=== PATIENT | male | born 1940 | race Caucasian/White ===

== ENCOUNTER 2019-09-01 03:47 | Inpatient (IN) | payer MEDICARE, OTHER ==
[~2019-09-01] VITALS: Ht 185.4 cm; Wt 81.6 kg
--- NOTE | ~2019-09-01 | HEMODYNAMI ---
PATIENT:KAIA MAE MEDICAL RECORD: [id number] : 40 [id number] ADMISSION DATE: 09/01/19 Generatedon:09/02/201912:38 Patient name: KAIA MAE Patient #: [id number] : 1940 Date of study: 09/02/2019 Page: Of Hemodynamic Procedure Report Patient Data Patient Demographics Procedure consent was obtained First Name: KAIA Gender: Male Last Name: TU : 1940 Patient #: [id number] Age: 78 year(s) Race: SSN: [id number] Additional ID: [id number] Contact details Address: [address] [place] [address] State: [place] City: [place] Zip code: [address] Past Medical History Allergies: No known allergies Admission Admission Data Admission Date: 09/01/2019 Admission Time: 5:23 Arrival Date: 09/02/2019 Arrival Time: 0:00 Room #: D.2135 Insurance Payor: Medicare [facility] #: [id number] Height (in.): 73 BSA: 2.06 (m2) Height (cm.): 185.42 BMI: 23.8 (kg/m2) Weight (lbs.): 180.36 Weight (kg.): 81.81 Lab Results Lab Result Date: 09/01/2019 Lab Result Time: 0:00 Biochemistry Name Units Result Min Max BUN mg/dl 15.3 --(---*)-- 7 18 Creatinine mg/dl 1.36 --(----)*- 0.6 1.3 eGFR ml/min 53 *-(----)-- 90 120 NONAFRICAN CBC Name Units Result Min Max Hemoglobin g/dl 13.6 --(*---)-- 13.5 17.5 Procedure Procedure Types Cath Procedure Diagnostic Procedure Sedation Charges Moderate Sedation up to 15 minutes PCI Procedure Coronary Stent Coronary Stent Initial x2 Procedure Description Procedure Date Procedure Date: 09/02/2019 Procedure Start Time: 12:17 Procedure End Time: 12:36 Procedure Staff Name Function Oli Nam MD Performing Physician Fior Douglas RT Monitor Kae Gustafson RT Monitor Day Spencer RN Nurse Cheryl Laughlin RT Scrub Indication NSTEMI Procedure Data Cath Procedure Fluoroscopy Diagnostic fluoroscopy Total fluoroscopy Time: 5.3 time: 5.3 min min Diagnostic fluoroscopy Total fluoroscopy dose: 414 dose: 414 mGy mGy Contrast Material Contrast Material Type Amount (ml) Isovue 300 105 Entry Location Entry Primary Successful Side Size Upsize Upsize Entry Closure Succes sful Closure Location (Fr) 1 (Fr) 2 (Fr) Remarks Device Remarks Femoral Left 6 Fr Exoseal artery Short Estimated blood loss: 10 ml Procedure Complications No complications Procedure Medications Medication Administration Route Dosage 0.9% NaCl I.V. 100 ml/hr Oxygen etCO2 Nasal cannula 2 l/min Lidocaine 2% added to field 20 Heparin Flush Bag added to field 2 bags (1000units/500ml NS) Plavix P.O. 75 mg Heparin Bolus I.V. 4000 units Versed I.V. 2 mg Fentanyl I.V. 100 mcg Hemodynamics Rest BSA: 2.06 (m2) HGB: 13.6 (g/dl) O2 Consumption: Estimated: 247.61 (ml/min) O2 Co nsumption indexed: Estimated:120.2 (ml/min/m) Heart Rate: 85 (bpm) Snapshots Pre Cath Intra NCS Post Cath Vital Signs Time Heart Resp SPO2 etCO2 NIBP (mmHg) Rhythm Pain Sedation Rate (ipm) (%) (mmHg) Status Level (bpm) 12:08:01 84 22 98 30 169/89(139) NSR 0 (11) 10(A) , No pain 12:12:21 84 17 99 31.5 154/76(121) NSR 0 (11) 10(A) , No pain 12:16:41 84 12 97 30 154/78(123) NSR 0 (11) 10(A) , No pain 12:20:57 88 15 98 39.1 153/87(127) NSR 0 (11) 9(A) , No pain 12:25:19 98 16 98 28.5 166/92(139) NSR 0 (11) 9(A) , No pain 12:29:39 97 12 98 38.3 160/92(124) NSR 0 (11) 10(A) , No pain 12:34:00 95 13 98 38.3 167/93(135) NSR 0 (11) 10(A) , No pain Medications Time Medication Route Dose Verified Delivered Reason Notes Effectiveness by by 12:07:12 0.9% NaCl I.V. 100 Oli Day used for ml/hr Cyril Spencer purifying plant operator 12:07:19 Oxygen etCO2 2 Oli Day used for Nasal l/min Cyril Spencer procedure cannula RN 12:07:24 Lidocaine 2% added 20ml Oli Oli for local to vial Cyril Nam MD anesthetic field 12:07:28 Heparin Flush added 2 Oli Oli used for Bag to bags Cyril Nam MD procedure (1000units/500ml field NS) 12:11:42 Plavix P.O. 75 mg Oli Day for Cyril Spencer antiplatelet RN therapy 12:17:19 Versed I.V. 2 mg Oli Day for sedation Cyril Spencer RN 12:17:28 Fentanyl I.V. 100 Oli Day for sedation mcg Cyril Spencer RN 12:18:33 Heparin Bolus I.V. 4000 Oli Day for verif ied units Cyril Spencer anticoagulation with Dr. CHOCO Nam Procedure Log Time Note 11:49:46 Informed consent obtained and on chart 11:50:07 Patient Weight : 180.36 lbs 11:50:07 Patient Height : 73 inches 11:50:35 Indication : NSTEMI 11:50:48 Procedure Status Urgent Heart Cath (IP). 11:50:51 Day Spencer RN sent for patient. Start room use. 11:50:53 Time tracking: Regular hours (M-F 7:00 - 5:00) 11:51:02 Plan of Care:Hemodynamics will remain stable., Cardiac rhythm will remain stable., Comfort level will be maintained., Respiratory function will remain adequate., Patient/ family verbilizes understanding of procedure., Procedure tolerated without complication., Recovers from procedure without complications.. 11:51:41 ACC Patient presents with Non-STEMI CCS Anginal Class 3--Marked limitation of physical activity, angina occurs with ordinary activity.. 11:52:12 ACCPatient has been prescribed/administered the following anti-anginal medication within the last 2 weeks: None 11:52:56 H&P Date Dictated: 09/02/2019 New H&P dictated by physician.. 11:55:33 Patient allergic to No known allergies 11:55:37 Is the patient allergic to Iodine/contrast media? No. 11:55:40 Was the patient premedicated? Yes 11:56:00 Is patient on blood thinner?Yes 11:56:05 ACC The patient was administered the following blood thiners within the last 24 hours: ACCPlavix 11:56:10 Patient diabetic? Yes. 11:56:22 If diabetic: On Metformin? No 11:57:33 ----Pre-sedation anethsthesia assessment.---- 11:57:38 Previous problem with sedation/anesthesia? No ? 11:57:40 Snore? Yes 11:57:43 Sleep apnea? No 11:57:45 Deviated septum? No 11:57:47 Opens mouth fully? Yes 11:57:49 Sticks out tongue? Yes 11:57:53 Airway obstruction? No ? 12:01:36 Dentures? Yes out 12:01:49 Patient received from [employer] to CCL 1 Alert and oriented. Tansferred to table in Supine position. 12:06:47 Warm blankets applied, and madan hugger turned on for patient comfort. 12:06:48 Correct patient and procedure confirmed by team. 12:06:49 ECG and BP/O2 sat monitors applied to patient. 12:06:50 Vital chart was started 12:06:51 Baseline sample Acquired. 12:06:57 Rhythm: sinus rhythm 12:06:59 Full Disclosure recording started 12:06:59 - 12:07:06 Pre-procedure instructions explained to patient. 12:07:07 Pre-op teaching completed and patient verbalized understanding. 12:07:12 0.9% NaCl 100 ml/hr I.V. was administered by Day Spencer RN; used for procedure; Verbal order read back and verified. 12:07:12 Family in patients room. 12:07:15 Patient NPO since Midnight. 12:07:19 Oxygen 2 l/min etCO2 Nasal cannula was administered by Day Spencer RN ; used for procedure; Verbal order read back and verified. 12:07:24 Lidocaine 2% 20ml vial added to field was administered by Oli Nam MD; for local anesthetic; Verbal order read back and verified. 12:07:28 Heparin Flush Bag (1000units/500ml NS) 2 bags added to field was administered by Oli Nam MD; used for procedure; Verbal order read back and verified. 12:08:27 Patient pain scale 0/10 ?. 12:08:43 Pre procedure: right dorsailis pedis pulse 1+ Palpable, but thready & weak; easily obliterated 12:08:48 Pre procedure: left dorsailis pedis pulse 1+ Palpable, but thready & weak; easily obliterated 12:08:59 IV patent on arrival in left wrist with 0.9% NaCl at [facility]. 12:09:09 Risk of Mortality: 0.1 12:09:15 Risk of blood transfusion: 0.4 12:09:22 Risk of TINY: 1.2 12:09:27 Left groin area was prepped with chlora-prep and draped in sterile fashion 12:09:28 Alarms reviewed by R. N. 12:09:29 Sharps counted by scrub and verified by R.N. 12:10:17 Use device set CATH PACK 12:10:20 ACIST Syringe (02209) opened to sterile field. 12:10:20 ACIST Hand Control (56991) opened to sterile field. 12:10:21 ACIST Manifold (26363) opened to sterile field. 12:10:25 Medline Cath Pack ([id number]) opened to sterile field. 12:10:26 Bag Decanter () opened to sterile field. 12:10:27 EMERALD Guide Wire (502-033) opened to sterile field. 12:11:07 CHOICE PT Extra Support 182cm wire ([id number]) opened to sterile field. 12:11:08 INFLATOR Merit BasixCompak (JJ2485) opened to sterile field. 12:11:09 SHEATH 6FR Eden (SCM802) opened to sterile field. 12:11:42 Plavix 75 mg P.O. was administered by Day Spencer RN; for antiplatele t therapy; Verbal order read back and verified. 12:14:11 Arrival Date: 09/02/2019 12:00:00 AM 12:14:36 Insurance Payor : Medicare 12:15:47 --------ALL STOP TIME OUT------ 12:15:48 Final Timeout: patient, procedure, and site verified with staff and physician. All members of the team are in agreement. 12:15:50 Left groin site verified by team. 12:15:57 Fire Safety Assessment: A--An alcohol-based skin anteseptic being used preoperatively., C--Open oxygen or nitrous oxide is being used., D--An ESU, laser, or fiber-optic light is being used. 12:16:01 Physical assessment completed. ASA score P 2 - A patient with mild systemic disease as per Oli Nam MD. 12:16:08 2) 60-89 Mildly reduced kidney function, and other findings (as for stage 1) point to kidney disease. 12:16:14 Maximum allowable contrast dose (3.7 X eGFR X 0.75)214 ml. 12:16:21 Sedation plan: IV Moderate Sedation Medication:Versed, Fentanyl 12:16:31 Procedure started. 12:17:05 Zero performed for pressure channel P1 12:17:19 Versed 2 mg I.V. was administered by Day Spencer RN; for sedation; Verbal order read back and verified. 12:17:28 Fentanyl 100 mcg I.V. was administered by Day Spencer RN; for sedation; Verbal order read back and verified. 12:17:31 Local anesthetic to left femerol artery with Lidocaine 2% by Oli Nam MD.INITIAL ACCESS ONLY 12:17:51 A 6 Fr Short sheath was inserted into the Left Femoral artery 12:18:16 GUIDE 6FR XBLAD 3.5 catheter ([id number]) opened to sterile field. 12:18:33 Heparin Bolus 4000 units I.V. was administered by Day Spencer RN; for anticoagulation; verified with Dr. Nam Verbal order read back and verified. 12:18:33 6 Fr XBLAD3.5 guide catheter was inserted over the wire 12:18:57 LCA angiography performed. 12:19:27 Pre PCI Site: [place] Diag1 has 99% stenosis. 12:19:41 Pre PCI Site: [place] pCirc has 95% stenosis. 12:20:22 CHOICE ES182 wire advanced. 12:20:29 Wire advanced across CX lesion. 12:21:38 Inflate balloon Inflation number: 1 A EUPHORA 2.0 x 15 Balloon ([id number]) was prepped and advanced across the Mid CX , then inflated to 17 ROYER for 0:10 (min:sec) . 12:21:43 Balloon removed over the wire. 12:22:55 Place stent Inflation Number: 2 A LENIN RX 2.5 x 18 stent ([id number]) was prepped and advanced across the Mid CX . The stent was deployed at 15 ROYER for 0:10 (min:sec) . 12:23:05 Stent catheter was removed intact over wire. 12:23:26 Wire redirected to DIAG. 12:25:47 Inflation number: 1 The EUPHORA 2.0 x 15 Balloon ([id number]) was reinflated across the 1st Diag , to 9 ROYER for 0:10 (min:sec) . 12:25:56 Balloon removed over the wire. 12:27:04 The LENIN RX 2.0 x 12 stent ([id number]) was advanced then removed because of failure to cross lesion 12:28:54 Inflation number: 2 The EUPHORA 2.0 x 15 Balloon ([id number]) was reinflated across the 1st Diag , to 15 ROYER for 0:10 (min:sec) . 12:28:55 Balloon removed over the wire. 12:29:45 Place stent Inflation Number: 3 A LENIN RX 2.0 x 12 stent ([id number]) was prepped and advanced across the 1st Diag . The stent was deployed at 13 ROYER for 0:10 (min:sec) . 12:29:53 ACT drawn and resulted at 291 seconds. (normal therapeutic range 180-24 0 seconds). 12:30:30 Stent catheter was removed intact over wire. 12:30:31 Wire removed. 12:30:32 Guide catheter removed. 12:30:47 EXOSEAL 6Fr (EX600) opened to sterile field. 12:31:09 Sheath removed intact; hemostasis achieved with Exoseal to the Left Femoral artery. 12:31:12 Procedure ended.(Physican Out) 12:32:04 Fluoroscopy time 05.30 minutes. 12:32:12 Fluoroscopy dose: 414 mGy 12:32:12 Flurop Dose total: 414 12:32:37 Dose Area Product 94379 mGy/cm. 12:32:45 Contrast amount:Isovue 300 105ml. 12:32:49 Maximum allowable dose exceeded? No. 12:32:54 Sharps counted by scrub and verified by R.N. 12:32:59 Insertion/operative site no bleeding no hematoma. 12:33:05 Post-op/insertion site Left Femoral artery dressed using a 4 x 4 and Tegaderm. 12:33:11 Post left femerol artery:stable 12:33:13 Post Procedure Pulses reassessed and unchanged 12:33:17 Post-procedure physical assessment completed. ASA score P 2 - A patient with mild systemic disease as per Oli Nam MD. 12:33:21 Post procedure rhythm: unchanged. 12:33:25 Estimated blood loss: 10 ml 12:33:27 Post procedure instruction explained to patient.Patient verbalizes understanding. 12:33:28 Patient needs reinforcement of post procedure teaching. 12:34:41 Procedure type changed to Cath procedure, Diagnostic procedure, Sedatio n Charges, Moderate Sedation up to 15 minutes, PCI procedure, Coronary Stent, Coronary Stent Initial x2 12:34:44 Procedure and supply charges have been captured, reviewed, submitted an d are correct. 12:36:05 Procedure Complication : No complications 12:36:09 Vital chart was stopped 12:36:16 [facility] Findings: MVD- PCI performed (see procedure note) 12:36:21 Operative report dictated upon procedure completion. 12:36:22 See physician's report for complete and final results. 12:36:25 Report given to [facility]. 12:36:29 Patient transfered to [facility] with Bed. 12:36:32 Procedure ended. 12:36:32 Full Disclosure recording stopped 12:36:40 ACC-PCI Only Patient was given prescriptions, or instructed by Oli Nam MD to start/continue the following medications upon discharge: Plavix 12:36:42 End room use (Document Last) Intervention Summary Intervention Notes Time ActionType Lesion and Equipment Used Action# Pressure Duration Attributes 12:21:38 Inflate Mid CX EUPHORA 2.0 x 1 17 00:10 balloon 15 Balloon ([id number]) 12:22:55 Place stent Mid CX LENIN RX 2.5 x 2 15 00:10 18 stent ([id number]) 12:25:47 Reinflate 1st Diag EUPHORA 2.0 x 1 9 00:10 balloon 15 Balloon ([id number]) 12:27:04 Discard LENIN RX 2.0 x Stent 12 stent ([id number]) 12:28:54 Reinflate 1st Diag EUPHORA 2.0 x 2 15 00:10 balloon 15 Balloon ([id number]) 12:29:45 Place stent 1st Diag LENIN RX 2.0 x 3 13 00:10 12 stent ([id number]) Device Usage Item Name Manufacture Quantity Catalog Number Hospital Part Current M inimal Lot# / Charge Number Stock Stock Serial# Code ACIST Syringe Acist 1 67980 001079 811357 729925 2 0 (44741) Medical Systems Inc ACIST Hand Acist 1 95453 182796 216705 849755 5 Control Medical (33923) Systems Inc ACIST Manifold Acist 1 12944 902105 925981 195758 5 (44457) Medical Systems Inc Medline Cath Medline 1 [id number] 005746 07614 471164 5 Pack ([id number]) Bag Decanter Microtek 1 2001S 293368 30222 553325 5 () Medical Inc. EMERALD Guide Cardinal 1 502-455 287512 461036 217405 5 Wire (502-455) Health CHOICE PT [place] 1 [id number] 411707 597967 137333 5 Extra Support Scientific 182cm wire ([id number]) INFLATOR Merit Merit 1 YM5120 106181 019697 999104 1 5 Corengi (NZ7726) SHEATH 6FR Terumo 1 DHT637 757655 573487 652257 4 0 Eden (HFT035) GUIDE 6FR Cardinal 1 [id number] 249487 943840 739505 1 0 XBLAD 3.5 Health catheter ([id number]) EUPHORA 2.0 x Medtronic 1 [id number] 834578 129674 280895 5 [id number] 15 Balloon ([id number]) LENIN RX 2.5 x Medtronic 1 [id number] 274933 3980931 036477 5 [id number] 18 stent ([id number]) LENIN RX 2.0 x Medtronic 1 [id number] 497581 4114895 674519 5 [id number] 12 stent ([id number]) EXOSEAL 6Fr Cardinal 1 EX600 531137 742654 624163 1 0 (EX600) Health Signature Audit [place] Stage Time Signature Unsigned Intra-Procedure 09/02/2019 Kae 12:37:07 PM Sj RT(R) (CV) Intra-Procedure 09/02/2019 Day Spencer 12:37:40 PM RN Intra-Procedure 09/02/2019 Oli Nam 12:38:06 PM [id number] [place] [address]
--- NOTE | ~2019-09-01 | HEMODYNAMI ---
PATIENT:KAIA MAE MEDICAL RECORD: [id number] : 40 LOCATION:[facility] D.2135 ADMISSION DATE: 09/01/19 Generatedon:09/02/20199:38 Patient name: KAIA MAE Patient #: [id number] : 1940 Date of study: 09/01/2019 Page: Of Hemodynamic Procedure Report Patient Data Patient Demographics Procedure consent was obtained First Name: KAIA Gender: Male Last Name: TU : 1940 Patient #: [id number] Age: 78 year(s) Race: Unknown SSN: [id number] Additional ID: [id number] Contact details Address: [address] [place] [address] State: [place] City: [place] Zip code: [address] Past Medical History Allergies: No known allergies Admission Admission Data Admission Date: 09/01/2019 Admission Time: 5:23 Room #: D.2135 Height (in.): 73 BSA: 2.06 (m2) Height (cm.): 185.42 BMI: 23.8 (kg/m2) Weight (lbs.): 180.36 Weight (kg.): 81.81 Lab Results Lab Result Date: 09/01/2019 Lab Result Time: 0:00 Biochemistry Name Units Result Min Max BUN mg/dl 15.3 --(---*)-- 7 18 Creatinine mg/dl 1.36 --(----)*- 0.6 1.3 eGFR ml/min 53 *-(----)-- 90 120 NONAFRICAN CBC Name Units Result Min Max Hemoglobin g/dl 13.6 --(*---)-- 13.5 17.5 Procedure Procedure Types Cath Procedure Diagnostic Procedure LHC LHC w/Coronaries w/Grafts FFR/IVUS Intra-Coronary IVUS Initial Intra-Coronary IVUS Additional Sedation Charges Moderate Sedation up to 15 minutes PCI Procedure Coronary Stent Coronary Stent Initial Coronary Stent Additional Procedure Description Procedure Date Procedure Date: 09/01/2019 Procedure Start Time: 10:33 Procedure End Time: 10:56 Procedure Staff Name Function Maria Shahen RT Scrub Oli Nam MD Performing Physician Rosario Crenshaw RT Monitor Day Spencer RN Nurse Indication Chest pain Procedure Data Cath Procedure Fluoroscopy Diagnostic fluoroscopy Total fluoroscopy Time: 4.5 time: 4.5 min min Diagnostic fluoroscopy Total fluoroscopy dose: 846 dose: 846 mGy mGy Contrast Material Contrast Material Type Amount (ml) Isovue 300 124 Entry Location Entry Primary Successful Side Size Upsize Upsize Entry Closure Succes sful Closure Location (Fr) 1 (Fr) 2 (Fr) Remarks Device Remarks Femoral Right 5 Fr 6 Fr Exoseal artery Short Estimated blood loss: 10 ml Diagnostic catheters Device Type Used For End Catheter Placement MULTIPACK Pigtail 5 Fr Procedure catheter MULTIPACK JL 4.0 5Fr Procedure catheter MULTIPACK 3DRC 5Fr Procedure catheter Procedure Complications No complications Procedure Medications Medication Administration Route Dosage 0.9% NaCl I.V. 100 ml/hr Oxygen etCO2 Nasal cannula 2 l/min Lidocaine 2% added to field 20 Heparin Flush Bag added to field 2 bags (1000units/500ml NS) Versed I.V. 2 mg Fentanyl I.V. 50 mcg Heparin Bolus I.V. 4000 units Fentanyl I.V. 25 mcg Hemodynamics Rest HGB: 13.6 (g/dl) Heart Rate: 87 (bpm) Snapshots Pre Cath Intra NCS Post Cath Vital Signs Time Heart Resp SPO2 etCO2 NIBP (mmHg) Rhythm Pain Status Sedation Rate (ipm) (%) (mmHg) Level (bpm) 10:23:17 95 22 100 29.4 169/91(132) NSR 0 (11) , No 10(A) pain 10:27:37 87 14 99 33.9 156/88(122) NSR 0 (11) , No 10(A) pain 10:31:53 87 14 100 35.4 158/85(125) NSR 0 (11) , No 10(A) pain 10:36:07 91 17 100 33.2 166/96(124) NSR 0 (11) , No 9(A) pain 10:40:25 93 16 100 33.2 156/90(122) NSR 2 (11) , 10(A) Uncomfortable 10:44:39 91 16 100 32.4 161/91(124) NSR 0 (11) , No 9(A) pain 10:48:55 92 13 100 15.8 159/91(130) NSR 0 (11) , No 9(A) pain 10:53:12 92 13 100 17.3 164/86(135) NSR 0 (11) , No 9(A) pain Medications Time Medication Route Dose Verified Delivered Reason Notes Effectiveness by by 10:22:17 0.9% NaCl I.V. 100 Oli Day used for ml/hr Cyril Spencer independent sales representative 10:22:24 Oxygen etCO2 2 Oli Day used for Nasal l/min Cyril Spencer procedure cannula RN 10:22:29 Lidocaine 2% added 20ml Oli Oli for local to vial Cyril Nam MD anesthetic field 10:22:33 Heparin Flush added 2 Oli Oli used for Bag to bags Cyril Nam MD procedure (1000units/500ml field NS) 10:34:20 Versed I.V. 2 mg Oli Day for sedation Cyril Spencer RN 10:34:28 Fentanyl I.V. 50 Oli Day for sedation mcg Cyril Spencer RN 10:39:31 Heparin Bolus I.V. 4000 Oli Day for verif ied units Cyril Spencer anticoagulation with Dr. CHOCO Nam 10:42:08 Fentanyl I.V. 25 Oli Day for sedation mcg Cyril Spencer insulation mechanic Log Time Note 9:58:35 Patient Height : 73 inches 9:58:41 Patient Weight : 180.36 lbs 10:00:26 Indication : Chest pain 10:00:36 Procedure Status Urgent Heart Cath (IP). 10:00:41 Day Spencer RN sent for patient. Start room use. 10:00:43 Time tracking: Regular hours (M-F 7:00 - 5:00) 10:00:48 Plan of Care:Hemodynamics will remain stable., Cardiac rhythm will remain stable., Comfort level will be maintained., Respiratory function will remain adequate., Patient/ family verbilizes understanding of procedure., Procedure tolerated without complication., Recovers from procedure without complications.. 10:01:04 Patient received from Med II to [facility] 2 Alert and oriented. Tansferred to table in Supine position. 10:01:09 Signed procedure consent form obtained from patient. 10:01:29 H&P Date Dictated: 09/01/2019 Within 30 days and on chart., H&P Addendum completed by physician on day of procedure. (MUST COMPLETE FOR ALL OUTPATIENTS). 10:01:30 Pre-procedure instructions explained to patient. 10:01:33 Family in patients room. 10:01:36 Patient NPO since Midnight. 10:01:50 Patient allergic to No known allergies 10:01:54 Is the patient allergic to Iodine/contrast media? No. 10:02:16 Use device set Femoral Dx 10:02:18 Bag Decanter (2002S) opened to sterile field. 10:02:18 ACIST Syringe (87568) opened to sterile field. 10:02:19 Medline Cath Pack ([id number]) opened to sterile field. 10:02:20 ACIST Hand Control (23268) opened to sterile field. 10:02:21 ACIST Manifold (52149) opened to sterile field. 10:02:22 DIAGNOSTIC Multipack 5Fr catheter set (HG2131) opened to sterile field. 10:02:23 Tegaderm 4 x 4 (1626W) opened to sterile field. 10:02:25 SHEATH 5FR [place] ([id number]) opened to sterile field. 10:02:27 EMERALD Guide Wire (768-816) opened to sterile field. 10:17:51 Correct patient and procedure confirmed by team. 10:17:51 Warm blankets applied, and madan hugger turned on for patient comfort. 10:17:52 ECG and BP/O2 sat monitors applied to patient. 10:17:58 Is patient on blood thinner?Yes 10:18:01 ACC The patient was administered the following blood thiners within the last 24 hours: ACCAspirin, ACCPlavix 10:18:10 Patient diabetic? Yes. 10:18:23 If diabetic: On Metformin? No 10:18:28 Snore? Yes 10:18:29 Sleep apnea? No 10:18:34 Dentures? Yes out 10:18:47 Patient pain scale 1/10 ?. 10:18:59 IV patent on arrival in left wrist with 0.9% NaCl at O. 10:20:23 Lab Result : eGFR NONAFRICAN 53 ml/min 10:: Lab Result : Hemoglobin 13.6 g/dl 10:: Lab Result : BUN 15.3 mg/dl 10:: Lab Result : Creatinine 1.36 mg/dl 10::32 Lab results completed and on chart. 10:20:44 Risk of blood transfusion: 2.2 10:22:09 Vital chart was started 10:22:17 0.9% NaCl 100 ml/hr I.V. was administered by Day Spencer RN; used for procedure; Verbal order read back and verified. 10:22:24 Oxygen 2 l/min etCO2 Nasal cannula was administered by Day Spencer RN; used for procedure; Verbal order read back and verified. 10:22:29 Lidocaine 2% 20ml vial added to field was administered by Oli Nam MD; for local anesthetic; Verbal order read back and verified. 10:22:33 Heparin Flush Bag (1000units/500ml NS) 2 bags added to field was administered by Oli Nam MD; used for procedure; Verbal order read back and verified. 10:29:33 Risk of Mortality: 4.8 10:29:37 Risk of blood transfusion: 4.0 10:29:40 Risk of TINY: 5.1 10:29:43 Right groin area was prepped with chlora-prep and draped in sterile fashion 10:29:44 Alarms reviewed by R. N. 10:29:45 Sharps counted by scrub and verified by R.N. 10:29:47 Physician arrived 10:30:32 Baseline sample Acquired. 10:30:36 Rhythm: sinus rhythm 10:30:37 Full Disclosure recording started 10:30:59 3a) 45-59 Moderately reduced kidney function. 10:31:26 Maximum allowable contrast dose (3.7 X eGFR X 0.75)147 ml. 10:32:16 Final Timeout: patient, procedure, and site verified with staff and physician. All members of the team are in agreement. 10:32:16 --------ALL STOP TIME OUT------ 10:32:19 Right groin site verified by team. 10:32:23 Fire Safety Assessment: A--An alcohol-based skin anteseptic being used preoperatively., C--Open oxygen or nitrous oxide is being used., D--An ESU, laser, or fiber-optic light is being used. 10:32:27 Physical assessment completed. ASA score P 3 - A patient with severe systemic disease as per Oli Nam MD. 10:32:31 Sedation plan: IV Moderate Sedation Medication:Versed, Fentanyl 10:33:13 Procedure started. 10:33:36 Local anesthetic to right femoral artery with Lidocaine 2% by Oli Nam MD.INITIAL ACCESS ONLY 10:33:45 A 5 Fr sheath was inserted into the Right Femoral artery 10:34:20 Versed 2 mg I.V. was administered by Day Spencer RN; for sedation; Verbal order read back and verified. 10:34:28 Fentanyl 50 mcg I.V. was administered by Day Spencer RN; for sedation; Verbal order read back and verified. 10:35:45 A MULTIPACK Pigtail 5 Fr catheter was advanced over the wire and used for Procedure. 10:35:52 LV angiography performed. 10:36:03 LV gram done using DE 10:36:09 EF : 60 % 10:36:14 Catheter removed. 10:36:58 A MULTIPACK JL 4.0 5Fr catheter was advanced over the wire and used for Procedure. 10:37:11 LCA angiography performed. 10:37:15 Catheter removed. 10:38:20 A MULTIPACK 3DRC 5Fr catheter was advanced over the wire and used for Procedure. 10:38:35 DOWLING to LAD angiography performed. 10:39:06 RCA angiography performed. 10:39:29 SVG to Circ occluded. 10:39:31 Heparin Bolus 4000 units I.V. was administered by Day Spencer RN; for anticoagulation; verified with Dr. Nam Verbal order read back and verified. 10:42:05 Catheter removed. 10:42:07 Proceeding to intervention. 10:42:08 Fentanyl 25 mcg I.V. was administered by Day Spencer RN; for sedation; Verbal order read back and verified. 10:42:13 Mortality risk 4.8%. 10:42:34 Sheath upsized to a 6 Fr Short. 10:42:46 6 Fr AR1SH guide catheter was inserted over the wire 10:42:52 FFR/IFR wire advanced. 10:42:59 INFLATOR Merit BasixCompak (BO1462) opened to sterile field. 10:43:01 [place] Verrata Plus pressure wire (59690Z) opened to sterile field. 10:43:02 GUIDE 6FR AR 1.0 SH catheter ([id number]) opened to sterile field. 10:43:37 Wire advanced across lesion. 10:44:15 PLB lesion measured at .60 with IFR 10:44:43 Pre PCI Site: [place] PDA has 85% stenosis. 10:44:58 ACT drawn and resulted at 230 seconds. (normal therapeutic range 180-240 seconds). 10:45:51 Place stent Inflation Number: 1 A LENIN RX 2.5 x 15 stent ([id number]) was prepped and advanced across the R PDA 85. The stent was deployed at 13 ROYER for 0:10 (min:sec) . 10:47:21 SHEATH 6FR [place] (DSI443) opened to sterile field. 10:47:42 Wire advanced across lesion. 10:47:51 mRCA lesion measured at .87 with IFR 10:48:28 Place stent Inflation Number: 1 A LENIN RX 3.0 x 18 stent ([id number]) was prepped and advanced across the Mid RCA 70. The stent was deployed at 17 ROYER for 0:06 (min:sec) 0. 10:48:37 EXOSEAL 6Fr (EX600) opened to sterile field. 10:49:01 Pre PCI Site: [place] mRCA has 70% stenosis. 10:49:22 Post PCI Site: [place] PLB has 0% stenosis. 10:49:29 Post PCI Site: [place] mRCA has 0% stenosis. 10:49:35 Guide catheter removed. 10:49:35 Wire removed. 10:49:54 Sheath removed intact; hemostasis achieved with Exoseal to the Right Femoral artery. 10:51:55 Procedure ended.(Physican Out) 10:52:48 Fluoroscopy time 04.50 minutes. 10:52:56 Fluoroscopy dose: 846 mGy 10:52:56 Flurop Dose total: 846 10:53:09 Dose Area Product 26788 mGy/cm. 10:53:22 Contrast amount:Isovue 300 124ml. 10:53:24 Maximum allowable dose exceeded? No. 10:53:25 Sharps counted by scrub and verified by R.N. 10:53:29 Insertion/operative site no bleeding no hematoma. 10:53:37 Post-op/insertion site Right Femoral artery dressed using a 4 x 4 and Tegaderm. 10:53:42 Post right femoral artery:stable 10:53:50 Post Procedure Pulses reassessed and unchanged 10:53:55 Post procedure: right dorsailis pedis pulse 2+ Normal; easily identifiable; not easily obliterated. 10:54:00 Post procedure rhythm: unchanged. 10:54:03 Estimated blood loss: 10 ml 10:54:12 Post procedure instruction explained to patient.Patient verbalizes understanding. 10:54:58 Procedure type changed to Cath procedure, Diagnostic procedure, LHC, C w/Coronaries w/Grafts, FFR/IVUS, Intra-Coronary IVUS Initial, Intra-Coronary IVUS Additional, Sedation Charges, Moderate Sedation up to 15 minutes, PCI procedure, Coronary Stent, Coronary Stent Initial, Coronary Stent Additional 10:55:00 Procedure and supply charges have been captured, reviewed, submitted and are correct. 10:55:39 Procedure Complication : No complications 10:55:41 Vital chart was stopped 10:55:45 [facility] Findings: MVD- PCI performed (see procedure note) 10:55:47 Operative report dictated upon procedure completion. 10:55:48 See physician's report for complete and final results. 10:55:58 Report given to [facility]. 10:56:04 Patient transfered to [facility] II with Bed. 10:56:06 Full Disclosure recording stopped 10:56:06 Procedure ended. 10:56:13 End room use (Document Last) 10:56:23 ACC-PCI Only Patient was given prescriptions, or instructed by Oli Nam MD to start/continue the following medications upon discharge: Plavix Intervention Summary Intervention Notes Time ActionType Lesion and Equipment Used Action# Pressure Duration Attributes 10:45:51 Place stent R PDA LENIN RX 2.5 x 1 13 00:10 15 stent ([id number]) 10:48:28 Place stent Mid RCA LENIN RX 3.0 x 1 17 00:06 18 stent ([id number]) Device Usage Item Name Manufacture Quantity Catalog Hospital Part Current Minimal Lot# / Number Charge Number Stock Stock Serial# Code ACIST Syringe Acist 1 95470 144871 563338 144851 20 (55608) Medical Systems Inc Bag Decanter Microtek 1 2001S 062685 32950 712905 5 (2001S) Medical Inc. Medline Cath Medline 1 [id number] 909054 72824 158050 5 Pack ([id number]) ACIST Hand Acist 1 75683 469413 078504 691554 5 Control Medical (76054) Systems Inc ACIST Manifold Acist 1 55561 901841 083991 914382 5 (76989) Medical Systems Inc DIAGNOSTIC Cardinal 1 DA3218 966236 03213 095880 30 Multipack 5Fr Health catheter set (UP4777) Tegaderm 4 x 4 3M 1 1626W 220207 521826 594277 5 (1626W) SHEATH 5FR Terumo 1 RCL501 919000 929846 085527 5 [place] (LAZ745) EMERALD Guide Cardinal 1 502-455 949655 842053 300219 5 Wire (502-455) Health MULTIPACK Cardinal 1 866185 5 Pigtail 5 Fr Health catheter MULTIPACK JL Cardinal 1 614535 5 4.0 5Fr Health catheter MULTIPACK 3DRC Cardinal 1 948338 5 5Fr catheter Health INFLATOR Merit Merit 1 QN5696 222270 495233 578725 15 DweholaNema Labs Medical (OT7683) [place] 1 95745S 012851 002698251 116981 5 Verrata Plus pressure wire (45771F) GUIDE 6FR AR Medtronic 1 [id number] 503012 20317 826638 1 1.0 SH catheter ([id number]) LENIN RX 2.5 x Medtronic 1 [id number] 147079 7242852 353891 5 [id number] 15 stent ([id number]) SHEATH 6FR Terumo 1 XCR556 001752 427882 327958 40 [place] (JPR308) LENIN RX 3.0 x Medtronic 1 [id number] 433187 0961111 577553 5 [id number] 18 stent ([id number]) EXOSEAL 6Fr Cardinal 1 EX600 343917 604772 674091 10 (EX600) Health Signature Audit [place] Stage Time Signature Unsigned Intra-Procedure 09/01/2019 Rosario Crenshaw 10:56:53 AM RT(R) Intra-Procedure 09/01/2019 Day Spencer 10:57:33 AM RN Intra-Procedure 09/01/2019 Oli Nam MD 10:58:00 AM 09/02/2019 9:38:20 AM Intra-Procedure 09/02/2019 Oli Nam 9:38:48 AM MD Signatures Performing Physician : Signature : Oli Nam MD Date : Time : Monitor : Rosario Crenshaw Signature : RT Date : Time : Nurse : Day Spencer RN Signature : Date : Time : [place] [address] [place] [address]
[2019-09-01] MEDS ORDERED: NORVASC10 MG PO (03:49)
[2019-09-01] MEDS ORDERED: BAYER CHEWABLE81 MG PO (03:49)
[2019-09-01] MEDS ORDERED: TIROSINT125 MCG PO (03:50)
--- NOTE | 2019-09-01 04:15 | NUR ---
PT PROVIDED WITH URINAL AND BLANKET.
[2019-09-01 04:58] LABS: CKMB 14.8 U/L (0.0-3.6); CREATINE KINASE 194 UL (21-232)
[2019-09-01 05:06] LABS: TROPONIN-I 1.743 ng/mL (0.000-0.060)
--- NOTE | 2019-09-01 06:18 | NUR ---
ARRIVES VIA WC TO BED LOW AND LOCKED EFFORTS FOR COMFORT AT THIS TIME CALL LIGHT PROVVIDED LCTA SKIN WARM AND DRY AND DENIES CP AT THIS TIME
--- NOTE | 2019-09-01 08:15 | NUR ---
PT RESTING IN BED WITH EYES OPEN CALL LIGHT IN REACH PT REPORTS NO CHEST PAIN
[2019-09-01 09:13] VITALS: BP 155/82
[2019-09-01 09:19] VITALS: BP 155/82; BMI 23.8
--- NOTE | 2019-09-01 10:00 | NUR ---
PT TAKEN TO [facility] PER [facility] TECHS VIA STRETCHER
[2019-09-01 10:22] LABS: ALT (SGPT) 23 U/L (10-68); CALC OSMOLALITY 286 mosm/kg (275-300); CALCIUM 8.8 mg/dL (8.5-10.1); CHLORIDE - SERUM 105 mmol/L (98-107); CHOL - HDL RATIO 5.4 ratio (2.3-4.9); CHOLESTEROL, TOTAL 194 mg/dL (0-200); GLUCOSE 176 mg/dL (74-106); HDL CHOLESTEROL 36 mg/dL (32-96); LDL CHOLESTEROL 120 mg/dL (0-100); LDL-HDL RATIO 3.3 ratio (1.5-3.5); POTASSIUM - SERUM 3.3 mmol/L (3.5-5.1); SODIUM 142 mmol/L (136-145); TRIGLYCERIDE 192 mg/dL (30-200); UREA NITROGEN 13 mg/dL (7-18); eGFR NON AFRICAN AMERICAN 77 mL/min (90-120)
--- NOTE | 2019-09-01 11:30 | NUR ---
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 PT RESTING WITH EYES CLOSED. WILL MONITER SON AT BED SIDE CALL LIGHT IN REACH
[2019-09-01 13:32] LABS: BASOPHILS 0.2 % (0-2); EOSINOPHILS 1.9 % (0-7); HEMATOCRIT 38.7 % (42.0-54.0); HEMOGLOBIN 13.2 g/dL (13.5-17.5); IMMATURE GRANULOCYTES 0.4 % (0-5); LYMPHOCYTES 20.6 % (15-50); MCH 29.5 pg (26.0-34.0); MCHC 34.1 g/dL (31.0-37.0); MCV 86.6 fL (80.0-100.0); MONOCYTES 5.2 % (2-11); NEUTROPHILS 71.7 % (40-80); PLATELET COUNT 119 10x3/uL (130-400); RBC 4.47 10x6/uL (4.20-6.10); RDW 12.5 % (11.5-14.5)
[2019-09-01 13:36] VITALS: BP 144/79
[2019-09-01 14:29] VITALS: Ht 185.4 cm; Wt 81.6 kg
[2019-09-01 18:12] VITALS: BP 151/68
--- NOTE | 2019-09-01 18:34 | NUR ---
PT RESTING IN BED WITH EYES OPEN CALL LIGHT IN REACH NO PROBLEMS WILL MONITER
--- NOTE | 2019-09-01 19:15 | NUR ---
EVENING ROUNDS COMPLETED. PATIENT RESTING IN BED WITH EYES CLOSED. DENIES HAVING ANY PAIN OR NEEDS AT THIS TIME. BED IN LOWEST POSITION. SIDE RAILS UP. CALL LIGHT IN REACH. WILL CONTINUE TO MONITOR.
[2019-09-01 20:00] VITALS: BP 162/78
[2019-09-02] VITALS: BP 134/65
[2019-09-02 04:00] VITALS: BP 139/74
--- NOTE | 2019-09-02 04:33 | NUR ---
PATIENT RESTING IN BED WITH EYES CLOSED. NO SIGNS OF DISTRESS. BED IN LOWEST POSITION. SIDE RAILS UP. CALL LIGHT IN REACH. WILL CONTINUE TO MONITOR.
[2019-09-02 05:11] LABS: BASOPHILS 0.2 % (0-2); EOSINOPHILS 2.2 % (0-7); HEMATOCRIT 39.3 % (42.0-54.0); HEMOGLOBIN 13.3 g/dL (13.5-17.5); IMMATURE GRANULOCYTES 0.3 % (0-5); MCH 29.5 pg (26.0-34.0); MCHC 33.8 g/dL (31.0-37.0); MCV 87.1 fL (80.0-100.0); MEAN PLATELET VOLUME 9.4 fL (7.4-10.4); MONOCYTES 9.2 % (2-11); NEUTROPHILS 67.1 % (40-80); PLATELET COUNT 124 10x3/uL (130-400); RBC 4.51 10x6/uL (4.20-6.10); RDW 12.7 % (11.5-14.5); WBC 9.1 10x3/uL (4.8-10.8)
[2019-09-02 05:39] LABS: CALC OSMOLALITY 289 mosm/kg (275-300); CALCIUM 8.6 mg/dL (8.5-10.1); CARBON DIOXIDE 26.6 mmol/L (21.0-32.0); CHLORIDE - SERUM 107 mmol/L (98-107); GLUCOSE 154 mg/dL (74-106); POTASSIUM - SERUM 3.3 mmol/L (3.5-5.1); SODIUM 144 mmol/L (136-145); UREA NITROGEN 12 mg/dL (7-18); eGFR NON AFRICAN AMERICAN 77 mL/min (90-120)
--- NOTE | 2019-09-02 07:15 | NUR ---
REPORT RECEIVED. WILL CONTINUE WITH POC. PT CURRENTLY LYING SEMI FOWLERS. CALL LIGHT W/I REACH. RESTING WITH EYES CLOSED. RR EVEN AND UNLABORED ON RA. NS INFUSING @50ML/HR VIA L.WRIST PIV. NO S/S OF DISTRESS NOTED. PT DENIES ANY NEEDS. WILL CTM.
[2019-09-02 10:44] VITALS: BP 150/75
--- NOTE | 2019-09-02 12:36 | HP ---
PATIENT: KAIA MAE MEDICAL RECORD: [id number] ACCOUNT: [id number] LOCATION:[address] : 40 ADMISSION DATE: 09/01/19 PCP: ANDIE MARSHALL MD HISTORY AND PHYSICAL EXAMINATION DIAGNOSES: 1. Non-Q-wave myocardial infarction. 2. Coronary artery disease. 3. Status post coronary artery bypass graft surgery. 4. Hypertension. 5. Shortness of breath, dyspnea on exertion. HISTORY OF PRESENT ILLNESS: Mr. Mae has a past history of coronary artery disease, coronary bypass graft surgery times 3 vessels 10 years ago. He has done well until the past week. He became more short of breath and dyspnea over the past week. Yesterday, he developed severe chest discomfort. [facility] Troponin is positive, troponin has increased. He still has episodes of chest discomfort this morning. His EKG is with no acute ST-T abnormalities. PHYSICAL EXAMINATION: CONSTITUTIONAL/GENERAL APPEARANCE: Well nourished, well developed, appears stated age. EYES: Lids and conjunctivae noninjected. No discharge. No pallor. ENT: Lips within normal limit. No cyanosis. No pallor. NECK: Carotid arteries, bilateral normal upstroke. No bruits. No thrills. No jugular venous pressure or distention. CERVICAL LYMPH NODES: Nontender. Nonenlarged. THYROID: Not enlarged. No nodules. CARDIOVASCULAR: Precordial exam, nondisplaced. No heaves or pericardial thrills. Rate and rhythm, regular. Heart sounds, normal S1, normal S2. No S3, no gallop, no rub. Systolic murmur, not heard. Diastolic murmur, not heard. RESPIRATORY: Respiratory effort, unlabored. Normal curvature. No thoracic deformity. No chest wall tenderness. Percussion, resonant. Auscultation, clear. No wheezes, no rales, no rhonchi. ABDOMEN: Soft, nondistended, nontender. No abdominal pain, no vomiting and normal appetite. MUSCULOSKELETAL: No joint tenderness, normal gait, normal tone. SKIN: Warm and dry. OVERALL IMPRESSION: Non-Q-wave myocardial infarction with continued angina, increasing troponin. We will proceed with coronary angiography. Further care depends upon findings of the angiography. TRANSINT:[id number] Voice Confirmation ID: [id number] DOCUMENT ID: [id number] HISTORY AND PHYSICAL [id number] KAIA MAE, JULIANN PALOMINO at 1236 CC: [id number] DICTATION DATE: 09/01/19913 HEAD OF DESIGN: 09/01/19 0947 ADM IN [facility] [address] [place] [address]
--- NOTE | 2019-09-02 12:50 | NUR ---
WRITTEN SCRIPT FOR ATIVAN 0.25 MG #20 WITH NO REFILLS GIVEN TO PATIENT.
--- NOTE | 2019-09-02 12:58 | NUR ---
RECEIVED BACK FROM THE [employer] DISPATCHER WITH DRESSING C/D/I TO LEFT GROIN. SOFT TO PALPATE. PPP AND STRONG. FAMILY AT BEDSIDE.
--- NOTE | 2019-09-02 13:33 | NUR ---
PAGE INTO DR BARRAZA PATIENT IS NOT ON A BETA IJEOMA GOING HOME. AWAITING CALL BACK. PATIENT IS ON NORVASC.
--- NOTE | 2019-09-02 13:42 | NUR ---
UPON ADMIT PATIENT HAS NOT HAD A FLU SHOT, WHEN ASKED IF HE WANTS ONE, HE STATES, "I'LL CHECK WITH MY FAMILY DOCTOR".
--- NOTE | 2019-09-02 13:47 | NUR ---
[facility] CALLED TO [facility], SPOKE WITH ERWIN PHARMACIST.
--- NOTE | 2019-09-02 13:50 | NUR ---
DR BARRAZA TO CALL BACK AND WILL PUT IN NEW ORDERS FOR BETA IJEOMA.
--- NOTE | 2019-09-02 14:17 | NUR ---
BETHANIE [facility] CALLED TO [facility], SPOKE WITH ERWIN PHARMACIST.
[2019-09-02] MEDS ORDERED: METOPROLOL TART25 MG PO (14:18)
[2019-09-02] MEDS ORDERED: PLAVIX75 MG PO (14:24)
[2019-09-02] MEDS ORDERED: ATIVAN0.5 MG (14:25)
[2019-09-02] MEDS ORDERED: PRAVASTATIN SOD10 MG PO (14:26)
--- NOTE | 2019-09-02 16:19 | NUR ---
I have reviewed this patient and I concur with the Shift Assessment completed by the Licensed Practical Nurse today this shift.
--- NOTE | 2019-09-02 17:15 | NUR ---
CALLED MEDICATIONS INTO [facility] @[phone].
--- NOTE | 2019-09-02 18:00 | MORECARE ---
CASE MANAGEMENT DISCHARGE SUMMARY PATIENT: KAIA MAE UNIT: [id number] ADM DATE: 09/01/19 AGE: 78 : 40 SEX: M ROOM/BED: D.0295 AUTHOR: GRETCHEN,DOC PHYSICIAN: REFERRING PHYSICIAN: JULIANN BARRAZA MD DATE OF SERVICE: 09/02/19 Discharge Plan Patient Name: KAIA MAE Facility: [facility]:[place] : 1940 Planned Disposition: Home Anticipated Discharge Date: 09/02/19 Discharge Date: 09/02/2019 Expected LOS: 1 Initial Reviewer: [email or web address] Initial Review Date: 09/02/2019 Generated: 09/02/19 6:59 pm Comments DCP- Discharge Planning Updated by [email or web address]: Martell Mccormack on 09/02/19 4:[address] Patient Name: KAIA MAE Admission Status: ER Accout number: [id number] Admission Date: 09-01-2019 : 1940 Admission Diagnosis: Attending: ALCIDES BARRAZA Current LOS: 1 Anticipated DC Date: 09-02-2019 Planned Disposition: Home Primary Insurance: MEDICARE A & B Discharge Planning Comments: CM MET WITH PT IN ROOM TO DISCUSS DISCHARGE PLANNING AND NEEDS. PT REPORTS LIVING AT HOME INDEPENDENTLY AND ALONE. PT HAS NO MEDICAL EQUIPMENT AND NO OUTSIDE SERVICES ASSISTING IN THE HOME. CM DISCUSSED AVAILABILITY OF HOME HEALTH, REHAB SERVICES AND MEDICAL EQUIPMENT. PT DENIES DISCHARGE NEEDS, REPORTS HIS DAUGHER WILL PICK HIM UP FOR DISCHARGE HOME. PT WILL BE STAYING WITH HIS DAUGHTER IN [place] FOR RECOVERY BEFORE RETURNING HOME. PT REPORTS PLAN TO MOVE TO [place] IN THE FUTURE TO BE CLOSER TO FAMILY AND SERVICES. ORDER WORKER NURSE NOTIFIED. Fisheries Enforcement Officer: Martell Mccormack DCPIA - Discharge Planning Initial Assessment Updated by [email or web address]: Martell Mccormack on 09/02/19 5:51 pm * Is the patient Alert and Oriented? Yes * How many steps to enter\exit or inside your home? NONE * PCP [place] * Pharmacy [facility] IN [place] WANTS TO USE [facility] [address] IN [place] TODAY FOR ANY NEEDED MEDICATIONS * Preadmission Environment Home Alone * ADLs Independent * Equipment None * Other Equipment NO MEDICAL EQUIPMENT PROVIDER PREFERNECE * List name and contact numbers for known caregivers / representatives who currently or will assist patient after discharge: GREGG MAE, DAUGHTER, * Verbal permission to speak to the caregivers and representatives has been obtained from the patient. Yes * Community resources currently utilized None * Please name any agencies selected above. NONE * Additional services required to return to the preadmission environment? No * Can the patient safely return to the preadmission environment? Yes * Has this patient been hospitalized within the prior 30 days at any hospital? No Patient Name: KAIA MAE Page [id number] at 1800 All edits/amendments must be made on the electronic document DICTATION DATE: 09/02/191758 LEAD COATER: CHRISS 09/02/191758 RPT#: [id number] DC DATE:09/02/19 STATUS: DIS IN [facility] [address] [place] [address] END OF REPORT
--- NOTE | 2019-09-03 13:28 | OP ---
PATIENT NAME: KAIA MAE MEDICAL RECORD: [id number] :40 LOCATION:D.M2 D.2135 ADMISSION DATE:09/01/19 SURGEON: JULIANN BARRAZA MD DATE OF OPERATION: 09/01/2019 PROCEDURES: 1. PTCA stent RCA and PDA. 2. IFR RCA and PDA. 3. Left heart catheterization. 4. Selective coronary angiography. 5. Left ventriculogram. 6. Vein graft angiography. 7. DOWLING angiography. INDICATION: Non-Q-wave myocardial infarction. PROCEDURE IN DETAIL: After informed consent was obtained and after a detailed description of risks, benefits as well as alternative therapies, the patient elected to proceed with angiogram and angioplasty. The right femoral area was prepped and draped in normal sterile fashion. Right femoral artery was cannulated via modified Seldinger technique with placement of 6-Greek sheath. All catheters exchanged through this sheath. FINDINGS: Left ventriculogram was performed in standard 30-degree DE view, reveals good cardiac wall motion, ejection fraction estimated 60%. SELECTIVE CORONARY ANGIOGRAPHY: 1. Left main is with no significant angiographic disease. 2. Left anterior descending has a diagonal that is 95% stenosed. This is a non-grafted diagonal, but after this, the LAD is totally occluded. 3. DOWLING to the distal LAD is widely patent. Distal LAD is widely patent. 4. Left circumflex has multiple areas of 70% to 80% stenosis. 5. Vein graft to circumflex is closed. 6. The right coronary artery has a 70% to 75% stenosis in the mid vessel. An IFR was abnormal. After this, there is a separate lesion of the PDA. IFR was abnormal as well after this. PTCA STENT OF THE RCA AND PDA: The PDA was 90% stenosed. This was addressed with a 2.5 x 15 mm Genaro stent, the RCA itself was addressed with a 3.0 x 18 mm Genaro. Result was 0% residual. IMPRESSION: Successful PTCA stent of the RCA and PDA going from 75% to 90% initial stenosis to 0% residual. PLAN: For PTCA stent of the left circumflex and LAD in the near future. TRANSINT:[id number] Voice Confirmation ID: [id number] DOCUMENT ID: [id number] OPERATIVE REPORT [id number] KAIA MAE JULIANN BARRAZA MD at 1328 CC: [id number] DICTATION DATE: 09/01/19 1123 OPERATION SPECIALIST: 09/01/19 1139 DIS IN 09/02/19 [id number] [place] [address]
--- NOTE | 2019-09-03 13:29 | OP ---
PATIENT NAME: KAIA MAE MEDICAL RECORD: [id number] :40 LOCATION:D.M2 D.2135 ADMISSION DATE:09/01/19 SURGEON: JULIANN BARRAZA MD DATE OF OPERATION: 09/02/2019 PROCEDURES: 1. PTCA stent LAD diagonal. 2. PTCA stent left circumflex. 3. Selective coronary angiography. INDICATION: Angina and coronary artery disease. PROCEDURE IN DETAIL: After informed consent was obtained and after a detailed description of the risks, benefits as well as alternative therapies, the patient elected to proceed with angiogram and angioplasty. The left femoral area was prepped and draped in normal sterile fashion. Left femoral artery was cannulated via modified Seldinger technique with placement of 6-Sinhala sheath. All catheters exchanged through this sheath. FINDINGS: The left circumflex has 90% to 95% stenosis in the mid vessel. Graft is closed of this vessel. This was addressed with a 2.5 x 18 mm Genaro stent. Result was 0% residual stenosis. PTCA STENT OF THE LAD DIAGONAL: This was 99% stenosed at the ostium. It was addressed with a 2.0 x 12 mm Genaro. Result was 0% residual stenosis. OVERALL IMPRESSION: Successful percutaneous transluminal coronary angioplasty stent of the left circumflex and left anterior descending diagonal, both going from 90% to 95% initial stenosis to 0% residual. TRANSINT:[id number] Voice Confirmation ID: [id number] DOCUMENT ID: [id number] JULIANN BARRAZA MD at 1329 CC: [id number] DICTATION DATE: 09/02/19 1238 UNIT DIRECTOR: 09/02/19 1252 DIS IN 09/02/19 [facility] [address] [id number]
--- NOTE | 2019-09-03 13:29 | DS ---
PATIENT:KAIA MAE :40 MEDICAL RECORD: [id number] DISCHARGE SUMMARY ADMISSION DATE: 09/01/19 DISCHARGE DATE: 09/02/19 DIAGNOSES: 1. Non-Q-wave myocardial infarction. 2. Coronary artery disease. 3. Percutaneous transluminal coronary angioplasty stent right coronary artery, left circumflex and left anterior descending diagonal this admission. 4. Hyperlipidemia. 5. Hypertension. HOSPITAL COURSE: Mr. Mae presents with unstable angina, non-Q-wave myocardial infarction, found to have significant disease of the RCA and LAD diagonal and left circumflex, underwent successful PTCA stent of all territories, was discharged home with the addition of aspirin, Plavix, Pravachol to his medical regimen. He will follow up with [facility] in 1 month. TRANSINT:[id number] Voice Confirmation ID: [id number] DOCUMENT ID: [id number] JULIANN BARRAZA MD at 1329 CC: [id number] DICTATION DATE: 09/02/19 1237 CATERING DIRECTOR: 09/03/19 0135 DIS IN 09/02/19 [facility] [address] [place] [address]
== END 2019-09-02 17:16 | disposition home or self-care (01) | DRG 246 ==
LOC: D.ER 03:47 → D.M2 05:23 → D.SDCHOLD 09-02 12:01 → D.M2 09-02 17:16
PROVIDERS: Family Medicine; ADMIT Internal Medicine Interventional Cardiology; ATTEND Internal Medicine Interventional Cardiology
PROC: 4A033BC Measurement of Arterial Pressure, Coronary, Percutaneous Approach (ICD-10-PCS; 2019-09-01)
PROC: 4A023N7 Measurement of Cardiac Sampling and Pressure, Left Heart, Percutaneous Approach (ICD-10-PCS; 2019-09-01)
PROC: B2111ZZ Fluoroscopy of Multiple Coronary Arteries using Low Osmolar Contrast (ICD-10-PCS; 2019-09-01)
PROC: B2151ZZ Fluoroscopy of Left Heart using Low Osmolar Contrast (ICD-10-PCS; 2019-09-01)
PROC: B2181ZZ Fluoroscopy of Left Internal Mammary Bypass Graft using Low Osmolar Contrast (ICD-10-PCS; 2019-09-01)
PROC: B2121ZZ Fluoroscopy of Single Coronary Artery Bypass Graft using Low Osmolar Contrast (ICD-10-PCS; 2019-09-01)
PROC: 027135Z Dilation of Coronary Artery, Two Arteries with Two Drug-eluting Intraluminal Devices, Percutaneous Approach (ICD-10-PCS; principal; 2019-09-01 10:00)
PROC: 027135Z Dilation of Coronary Artery, Two Arteries with Two Drug-eluting Intraluminal Devices, Percutaneous Approach (ICD-10-PCS; 2019-09-02)
DX: I21.4 Non-ST elevation (NSTEMI) myocardial infarction (principal); E11.9 Type 2 diabetes mellitus without complications; I10 Essential (primary) hypertension; I25.119 Atherosclerotic heart disease of native coronary artery with unspecified angina pectoris